=== PATIENT | male | born 1975 | race Caucasian/White ===

== ENCOUNTER 2017-06-13 07:38 | Emergency (ER) | payer SELFPAY ==
[2017-06-13] MEDS: IBUPROFEN 800 MG TABLET. PO (08:25)
[2017-06-13] MEDS: oxyCODONE/APAP 5/325 1 TAB TABLET PO (08:27)
== END 2017-06-13 09:20 | disposition home or self-care (01) ==
LOC: ER 07:38
DX: M10.9 Gout, unspecified (principal); G89.29 Other chronic pain
CPT/HCPCS: 73630; 99284

== ENCOUNTER 2019-04-18 01:38 | Emergency (ER) | payer SELFPAY ==
[~2019-04-18] VITALS: Ht 185.4 cm; Wt 90.0 kg
[~2019-04-18 01:38] MED LIST: METH4TAB2 PO; OXYC1TAB15 PO
[2019-04-18 02:42] VITALS: BP 135/87
--- NOTE | 2019-04-18 04:00 | PHYS DOC ---
Past Medical History Past Medical History: Asthma, Depression, Other Additional Past Medical Histor: Gout,Mtr.reports he grew out of his Asthma.Fractured back. Past Surgical History: Other Additional Past Surgical Histo: Back surgery,"Nose reattached." Smoking Status: Current Every Day Smoker Alcohol Use: Rarely Drug Use: None Adult General Chief Complaint Chief Complaint: INSECT BITE HPI HPI Patient is a 43 year old male presents with chief complaint of insect bite right forearm. Patient states symptoms been ongoing for 2 days progressively becoming worse. On exam patient has some redness measuring 6 x 6 cm swollen consistent with an abscess. Patient also has 3 wounds left knee. Left near nonfluctuant- 1cm with central scab. Review of Systems Review of Systems Constitutional: Denies fever or chills [] Eyes: Denies change in visual acuity, redness, or eye pain [] HENT: Denies nasal congestion or sore throat [] Respiratory: Denies cough or shortness of breath [] Cardiovascular: No additional information not addressed in HPI [] GI: Denies abdominal pain, nausea, vomiting, bloody stools or diarrhea [] : Denies dysuria or hematuria [] Musculoskeletal: Denies back pain or joint pain [] Integument: Denies rash or skin lesions [abscess right forearm] Neurologic: Denies headache, focal weakness or sensory changes [] Endocrine: Denies polyuria or polydipsia [] All other systems were reviewed and found to be within normal limits, except as documented in this note. Current Medications Current Medications Current Medications Medications (Trade) Dose Ordered Sig/Julio Start Time Stop Time Status Last Admin Dose Admin Lidocaine HCl (Xylocaine-Mpf 1% 2ml Vial) 10 ml 1X ONCE 04/18/19 04:30 04/18/19 04:31 DC Allergies Allergies Allergies Coded Allergies Type Severity Reaction Last Updated Verified No Known Drug Allergies 06/13/17 No Physical Exam Physical Exam Constitutional: Well developed, well nourished, no acute distress, non-toxic appearance. [] HENT: Normocephalic, atraumatic, bilateral external ears normal, oropharynx moist, no oral exudates, nose normal. [] Eyes: PERRLA, EOMI, conjunctiva normal, no discharge. [] Neck: Normal range of motion, no tenderness, supple, no stridor. [] Cardiovascular:Heart rate regular rhythm, no murmur [] Lungs & Thorax: Bilateral breath sounds clear to auscultation [] Abdomen: Bowel sounds normal, soft, no tenderness, no masses, no pulsatile masses. [] Skin: Warm, dry, no erythema, no rash. [] Back: No tenderness, no CVA tenderness. [] Extremities: No tenderness, no cyanosis, no clubbing, ROM intact, no edema. [] Neurologic: Alert and oriented X 3, normal motor function, normal sensory function, no focal deficits noted. [] Psychologic: Affect normal, judgement normal, mood normal. [] Current Patient Data Vital Signs Vital Signs Date Time Temp Pulse Resp B/P (MAP) Pulse Ox O2 Delivery O2 Flow Rate FiO2 04/18/19 02:42 97.5 94 20 135/87 (103) 94 Room Air 97.5 EKG EKG [] Radiology/Procedures Radiology/Procedures [] Course & Med Decision Making Course & Med Decision Making Pertinent Labs and Imaging studies reviewed. (See chart for details) []Patient was evaluated for chief complaint. Right forearm consistent with abscess with over lying cellulitis. Wound was cleaned with Betadine. Lidocaine 1% approximately 5 mL used for local anesthesia. Once successful anesthesia was achieved 11 blade was used for incision. Incision was approximately 1 cm in length. Large amount of pus drained. Loculations broken up with Carin's. Wound was flushed with approximately 70 mL NS. Wound was packed with iodoform. Dressing was placed by nursing. Patient was discharged home with Bactrim and Keflex and Ultram. Patient advised to return for wound reevaluation in 3-5 days. Dragon Disclaimer Dragon Disclaimer This electronic medical record was generated, in whole or in part, using a voice recognition dictation system. Departure Departure Referrals: NO PCP (PCP) TRAVIS DEXTER DO Apr 18, 2019 04:00
[2019-04-18] MEDS ORDERED: LIDOCAINE 1% PF 2 ML VIAL. INJ ONE (04:30)
[2019-04-18] MEDS ORDERED: SULF1TAB24 PO (05:05)
[2019-04-18] MEDS ORDERED: TRAM-48 PO (05:05)
[2019-04-18] MEDS ORDERED: CEPH-264 PO (05:05)
== END 2019-04-18 05:20 | disposition home or self-care (01) ==
LOC: ER 01:38
DX: L02.511 Cutaneous abscess of right hand (principal); L53.9 Erythematous condition, unspecified; J45.909 Unspecified asthma, uncomplicated; F32.9 Major depressive disorder, single episode, unspecified; F17.200 Nicotine dependence, unspecified, uncomplicated; Z98.890 Other specified postprocedural states
CPT/HCPCS: 10061; 96365; 99284; J0696

== ENCOUNTER 2019-04-22 02:11 | Emergency (ER) | payer SELFPAY ==
[~2019-04-22] VITALS: Ht 185.4 cm; Wt 82.3 kg
[~2019-04-22 02:11] MED LIST changes: +CEPH-264 PO; +SULF1TAB24 PO; +TRAM-48 PO
[2019-04-22 02:15] VITALS: BP 140/98
[2019-04-22] MEDS ORDERED: VANCOMYCIN PER PHARMACY MC PRN (02:45)
[2019-04-22 02:55] LABS: BASO # 0.1 x10^3/uL (0.0-0.2); BASO % 1 % (0-3); EOS # 0.2 x10^3/uL (0.0-0.7); EOS % 2 % (0-3); HEMATOCRIT 42.5 % (39.0-53.0); HEMOGLOBIN 14.2 g/dL (13.0-17.5); LYMPH # 3.1 x10^3/uL (1.0-4.8); LYMPH % 27 % (24-48); MEAN CORPUSCULAR HEMOGLOBIN 31 pg (25-35); MEAN CORPUSCULAR HGB CONC 33 g/dL (31-37); MEAN CORPUSCULAR VOLUME 91 fL (79-100); MONO # 0.7 x10^3/uL (0.0-1.1); MONO % 6 % (0-9); NEUT # 7.2 x10^3/uL (1.8-7.7); NEUT % 64 % (31-73); PLATELET COUNT 338 x10^3/uL (140-400); RED BLOOD COUNT 4.65 x10^6/uL (4.30-5.70); RED CELL DISTRIBUTION WIDTH 13.4 % (11.5-14.5); WHITE BLOOD COUNT 11.2 x10^3/uL (4.0-11.0)
[2019-04-22] MEDS ORDERED: ONDANSETRON PF 4 MG/2 ML VIAL. IVP ONE (03:00)
[2019-04-22] MEDS ORDERED: IV NORMAL SALINE 1000ML BAG 1,000 ML IV ONE (03:00)
[2019-04-22] MEDS ORDERED: MORPHINE SULFATE 4 MG/ML VIAL. IV ONE (03:00)
[2019-04-22 03:06] LABS: CREATININE 1.1 mg/dL (0.7-1.3); GFR 73.1; POTASSIUM 3.7 mmol/L (3.5-5.1)
[2019-04-22 03:13] LABS: ALBUMIN 3.4 g/dL (3.4-5.0); ALBUMIN/GLOBULIN RATIO 0.9 (1.0-1.7); C-REACTIVE PROTEIN 32.5 mg/L (0-3.3); TOTAL BILIRUBIN 0.3 mg/dL (0.2-1.0); TOTAL PROTEIN 7.3 g/dL (6.4-8.2)
--- NOTE | 2019-04-22 06:03 | PHYS DOC ---
Past Medical History Past Medical History: Asthma, Depression, Other Additional Past Medical Histor: Gout,Mtr.reports he grew out of his Asthma. Fractured back. Past Surgical History: Other Additional Past Surgical Histo: Back surgery,"Nose reattached." Smoking Status: Current Every Day Smoker Alcohol Use: Rarely Drug Use: None Adult General Chief Complaint Chief Complaint: WOUND CHECK HPI HPI Patient is a 43 year old male who presents to the ED for wound rechecks. Patient had I&D of right forearm abscess 4 days ago in the emergency department. Patient placed on dual antibiotic therapy. He is compliant with Keflex and Bactrim. Reports decreased redness swelling drainage from extensor forearm wound and persistent erythema and superficial swelling over left lateral knee. Denies pain in joint. No fever, rash, nausea vomiting. [] Review of Systems Review of Systems Review of symptoms as per history of present illness. All other systems were reviewed and found to be within normal limits, except as documented in this note. Current Medications Current Medications Current Medications Medications (Trade) Dose Ordered Sig/Julio Start Time Stop Time Status Last Admin Dose Admin Morphine Sulfate (Morphine Sulfate) 4 mg 1X ONCE 04/22/19 03:00 04/22/19 03:01 DC 04/22/19 03:03 4 MG Ondansetron HCl (Zofran) 4 mg 1X ONCE 04/22/19 03:00 04/22/19 03:01 DC 04/22/19 03:01 4 MG Sodium Chloride 1,000 ml @ 1,000 mls/hr 1X ONCE 04/22/19 03:00 04/22/19 02:40 DC Vancomycin HCl (Vanco Per Pharmacy) 1 each PRN DAILY PRN 04/22/19 02:45 04/22/19 02:40 DC Allergies Allergies Allergies Coded Allergies Type Severity Reaction Last Updated Verified No Known Drug Allergies 06/13/17 No Physical Exam Physical Exam Constitutional: Well developed, well nourished, no acute distress, non-toxic ap pearance. [] HENT: Normocephalic, atraumatic, bilateral external ears normal, oropharynx moist,, nose normal. [] Eyes: PERRLA, EOMI. [] Neck: Normal range of motion, supple. [] Cardiovascular:Heart rate regular rhythm, no murmur [] Lungs & Thorax: Bilateral breath sounds clear to auscultation [] Extremities: Right forearm, open wound with macerated skin, overlying mid extensor forearm, no packing in place. Minimal drainage surrounding erythema swelling pain. Left knee, superficial deroofed pustule, left lateral knee with mild edema off left lower extremity. [] Neurologic: Alert and oriented X 3, normal motor function, normal sensory function, no focal deficits noted. [] Psychologic: Affect normal, judgement normal, mood normal. [] Current Patient Data Vital Signs Vital Signs Date Time Temp Pulse Resp B/P (MAP) Pulse Ox O2 Delivery O2 Flow Rate FiO2 04/22/19 03:03 97 04/22/19 02:15 97.9 94 18 140/98 (112) Room Air 97.9 Lab Values Laboratory Tests Test 04/22/19 02:40 White Blood Count 11.2 x10^3/uL (4.0-11.0) H Red Blood Count 4.65 x10^6/uL (4.30-5.70) Hemoglobin 14.2 g/dL (13.0-17.5) Hematocrit 42.5 % (39.0-53.0) Mean Corpuscular Volume 91 fL (79-100) Mean Corpuscular Hemoglobin 31 pg (25-35) Mean Corpuscular Hemoglobin Concent 33 g/dL (31-37) Red Cell Distribution Width 13.4 % (11.5-14.5) Platelet Count 338 x10^3/uL (140-400) Neutrophils (%) (Auto) 64 % (31-73) Lymphocytes (%) (Auto) 27 % (24-48) Monocytes (%) (Auto) 6 % (0-9) Eosinophils (%) (Auto) 2 % (0-3) Basophils (%) (Auto) 1 % (0-3) Neutrophils # (Auto) 7.2 x10^3/uL (1.8-7.7) Lymphocytes # (Auto) 3.1 x10^3/uL (1.0-4.8) Monocytes # (Auto) 0.7 x10^3/uL (0.0-1.1) Eosinophils # (Auto) 0.2 x10^3/uL (0.0-0.7) Basophils # (Auto) 0.1 x10^3/uL (0.0-0.2) Sodium Level 139 mmol/L (136-145) Potassium Level 3.7 mmol/L (3.5-5.1) Chloride Level 101 mmol/L (98-107) Carbon Dioxide Level 24 mmol/L (21-32) Anion Gap 14 (6-14) Blood Urea Nitrogen 15 mg/dL (8-26) Creatinine 1.1 mg/dL (0.7-1.3) Estimated GFR (Cockcroft-Gault) 73.1 BUN/Creatinine Ratio 14 (6-20) Glucose Level 117 mg/dL (70-99) H Lactic Acid Level 1.7 mmol/L (0.4-2.0) Calcium Level 9.0 mg/dL (8.5-10.1) Total Bilirubin 0.3 mg/dL (0.2-1.0) Aspartate Amino Transferase (AST) 12 U/L (15-37) L Alanine Aminotransferase (ALT) 18 U/L (16-63) Alkaline Phosphatase 82 U/L (46-116) Creatine Kinase 113 U/L (39-308) C-Reactive Protein, Quantitative 32.5 mg/L (0-3.3) H Total Protein 7.3 g/dL (6.4-8.2) Albumin 3.4 g/dL (3.4-5.0) Albumin/Globulin Ratio 0.9 (1.0-1.7) L Laboratory Tests 04/22/19 02:40 Laboratory Tests 04/22/19 02:40 EKG EKG [] Radiology/Procedures Radiology/Procedures [] Course & Med Decision Making Course & Med Decision Making Pertinent Labs and Imaging studies reviewed. (See chart for details) [Minimal pus expressed from left knee, appears to be appropriately responding to do on antibiotic therapy. Basic labs reviewed. ] Dragon Disclaimer Dragon Disclaimer This electronic medical record was generated, in whole or in part, using a voice recognition dictation system. Departure Departure Impression: Primary Impression: Encounter for wound re-check Disposition: 09 ADMITTED INPATIENT Condition: STABLE Patient Instructions: Wound Check Additional Instructions: Please keep wound clean, dry and covered. Continue antibiotics as directed. Return to the ED in 2-3 days for wound recheck. Return sooner if worsening signs of infection. DAWN CARRIZALES DO Apr 22, 2019 06:03
== END 2019-04-22 03:30 | disposition home or self-care (01) ==
LOC: ER 02:11
DX: L02.511 Cutaneous abscess of right hand (principal); L08.9 Local infection of the skin and subcutaneous tissue, unspecified; R60.0 Localized edema; L53.9 Erythematous condition, unspecified; J45.909 Unspecified asthma, uncomplicated; F32.9 Major depressive disorder, single episode, unspecified; F17.200 Nicotine dependence, unspecified, uncomplicated; Z98.890 Other specified postprocedural states
CPT/HCPCS: 36415; 80053; 82550; 83605; 85025; 86140; 87040; 96374; 96375; 99284; J2270; J2405